=== PATIENT | female | born 1990 | race Caucasian/White ===

== ENCOUNTER 2025-03-14 17:14 | Outpatient (REF) | payer BC, SELFPAY | END 2025-03-14 17:15 | disposition home or self-care (01) | LOC: LBN 17:14 | PROVIDERS: Visit Provider Obstetrics & Gynecology | DX: D26.9 Other benign neoplasm of uterus, unspecified (principal) | CPT/HCPCS: 88305; 88361 ==

== ENCOUNTER 2025-04-09 15:17 | Outpatient (CLI) | payer BC, SELFPAY ==
[2025-04-09 14:37] LABS: HCT 41.1 % (36.0-46.0); HGB 14.1 g/dL (11.2-15.7); MCH 30.7 pg (27.0-33.0); MCHC 34.3 % (32.0-36.0); MCV 89 fL (80-95); MPV 9.7 fL (8.0-11.0); Platelet Count 253 10^3/uL (130-400); RBC 4.60 10^6/uL (3.93-5.22); RDW 12.6 % (11.7-14.6); RDW-SD 41.8 fL; WBC 7.84 10^3/uL (4.4-10.8)
== END 2025-04-09 15:18 | disposition home or self-care (01) ==
LOC: LBO 15:17
PROVIDERS: PCP Nurse Practitioner Family; Visit Provider Obstetrics & Gynecology
DX: Z01.818 Encounter for other preprocedural examination (principal)
CPT/HCPCS: 36415; 85027; 86850; 86900; 86901

== ENCOUNTER 2025-04-10 09:03 | Day surgery (SDC) | payer BC, SELFPAY ==
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
[2025-04-10 09:24] VITALS: BP 105/68; PULSE 66; RESP 16; TEMP 37; O2SAT 97
[2025-04-10] MEDS: Lactated Ringers 1,000 ML 150 ML IV (09:47)
[2025-04-10] MEDS: Acetaminophen 500 MG TAB 1000 MG PO (10:03)
--- NOTE | 2025-04-10 10:17 | W.ANESPRE ---
General Info Date of Service Date Performed: 04/10/25 Height: 5 ft 4 in Weight: 94.4 kg Body Mass Index (BMI): 35.7 Surgical Procedure: Operation Date: 04/10/25 10:40 Proposed Procedure Side Surgeon p Bethany Cone Biopsy, Melania Pineda DO Meds Allergies and Home Medications Allergies Allergy/AdvReac Type Severity Reaction Status Date / Time amoxicillin AdvReac Skin Rash Verified 04/10/25 09:23 Home Medication ?Medication ?Instructions ?Recorded cholecalciferol (vitamin D3) 25 75 mcg PO DAILY 03/13/25 mcg (1,000 unit) capsule mecobalamin (vitamin B12) 1,000 1,000 mcg PO DAILY 03/13/25 mcg chewable tablet omega-3 fatty acids 1,000 mg 1,000 mg PO DAILY 03/13/25 capsule lactobacillus combination no.4 3 3,000 mmu cells PO DAILY 04/09/25 billion cell capsule (Probiotic) Current Visit Medications: Current Medications Generic Name Dose Route Start Last Admin Trade Name Muna PRN Reason Stop Dose Admin Ringer's Solution 1,000 mls @ 150 mls/hr 04/10/25 06:00 04/10/25 09:47 IV 04/10/25 23:59 150 mls/hr INFUSION YANELI Administration IV Miscellaneous Supplies 1 each 04/10/25 06:00 Iv Access IV 04/10/25 23:59 DIRECTED YANELI Sodium Chloride 0 ml 04/10/25 06:00 Normal Saline Flush 10 Ml Syr IV 04/10/25 23:59 PRN PRN Sodium Chloride 0 ml 04/10/25 06:00 Normal Saline 10 Ml Vial IJ 04/10/25 23:59 DIRECTED PRN Sterile Water 0 ml 04/10/25 06:00 Water,Injection,Sterile 10 Ml Vial IJ 04/10/25 23:59 DIRECTED PRN PFSH Active Problems Active Problems: Problem Status Onset Code GUICHO II (cervical intraepithelial neoplasia II) Acute N87.1 Medical History Medical History LGSIL on Pap smear of cervix Obesity Psoriasis Vitamin D deficiency Pt. states this is incorrect Vitamin B 12 deficiency Pt. states this is incorrect Hypercholesteremia HPV (human papilloma virus) infection Surgical History Surgical History Hx of wisdom tooth extraction Tobacco Smoking/Tobacco Use Status: Former Tobacco Use Alcohol Alcohol Intake: former Substance Use Substance use: Occasionally Substance use type: marijuana Vital Signs and Lab Results Vital Signs Most Recent Vital Signs in EMR: Most Recent Vital Signs Temp Pulse Resp BP Pulse Ox 37.0 C 66 16 105/68 97 04/10/25 09:24 04/10/25 09:24 04/10/25 09:24 04/10/25 09:24 04/10/25 09:24 Point of Care Results Point of Care Results: POC- Test(urine) Negative 04/10/25 09:36 Lab Results Blood Type / Crossmatch: Antibody Screen NEGATIVE 04/09/25 Complete Blood Count: WBC, (4.4-10.8) 7.84 10^3/uL 04/09/25, 14:33 RBC, (3.93-5.22) 4.60 10^6/uL 04/09/25, 14:33 Hgb, (11.2-15.7) 14.1 g/dL 04/09/25, 14:33 Hct, (36.0-46.0) 41.1 % 04/09/25, 14:33 Plt Count, (130-400) 253 10^3/uL 04/09/25, 14:33 Anesthesia Assessment and Plan Anesthesia History Personal History: No History of Anesthesia Complications Family History: No Family History of Anesthesia Complications Exercise Tolerance Exercise Tolerance: Metabolic Equivalents>4 Cardiac & Pulmonary Exam Cardiac Exam: Normal S1/S2 Heart Sounds Pulmonary Exam: Clear Bilateral Breath Sounds Implantable Cardiac Device Does patient have a Pacemaker or an ICD?: No Airway Exam Known Difficult Airway: No Mallampati Class: 3 Mouth Opening: Narrow (< 3cm) Thyromental Distance: Greater than 3 cm Neck Range of Motion: Full ROM Neck Circumference: Normal Teeth Condition: Normal Dentition ASA Classification ASA Score: ASA 2 Emergency Case?: No NPO Status NPO Status: NPO Clears >2 hours, Solids >8 hours Status Status: Negative HCG Anesthesia Plan Resuscitation Status: Full Code Anesthesia Technique: General Anesthesia Airway Planned: Natural Airway Monitors Used: Standard Monitors Preoperative Comments:: 34 yo for LEEP cone bx. Sig PMHx: former smoker, occ cannabis. Denies GERD.
[2025-04-10 10:20] VITALS: BMI 35.7
--- NOTE | 2025-04-10 12:50 | W.PM.OP ---
Operative Note Operative Note PRE-OP DIAGNOSIS: GUICHO-2 POST-OP DIAGNOSIS: same PROCEDURE: Loop electrode excision procedure with endocervical curettage SURGEON: Melania Pineda Refer to Anesthesia Record ESTIMATED BLOOD LOSS: 5 PATHOLOGY: other (Left side transition zone, right side transition zone, and ECC) COMPLICATIONS: None Patient was transported to: PACU Patient's condition: stable Implants: None Indications: 34-year-old G0 with recent LSIL on Pap smear and subsequent GUICHO-2 on colposcopy; ECC benign Findings: Full transition zone appreciated with application of legal solution Procedure Description: Patient was taken to the OR with IV fluids running. Prophylactic antibiotics were not indicated. She urinated immediately prior to entering the OR. Anesthesia was established and found to be adequate. She was positioned into the modified dorsolithotomy position with her legs up in yellowfin stirrups. Pelvis was prepped with povidone solution, the patient was dressed with sterile dressings. A timeout was performed. A rubber coated exam was used to visualize the cervix. Lugol solution was applied to the cervix in order to appreciate the transition zone and any abnormal areas. Bovie was set to 60/60. A large loop electrode was chosen, and cut cautery was used to excise the transition zone in its entirety starting from the patient's left moving to the right. Of note, as I removed the loop electrode after the first pass, a portion of the right side of the transition zone remained; therefore, a second pass was made in a similar fashion to collect the right side of the patient's cervix. Once adequate samples were obtained, bleeding was addressed with ball cautery. Once adequate hemostasis was achieved, an ECC was collected using a Kevorkian curette. A few persistent areas of bleeding were addressed with additional ball cautery, and Monsel solution was applied to the entirety of the cervical bed. Good hemostasis was noted. All instruments were removed, and the patient was noted to have tolerated the procedure well. She was moved to PACU in good condition. Date of Procedure: 04/10/25
[2025-04-10 12:56] VITALS: BP 94/65; PULSE 68; RESP 14; TEMP 36.4; O2SAT 95
--- NOTE | 2025-04-10 13:02 | W.ANESPOSTOP ---
Postoperative Evaluation Date, Time and Location Date Performed: 04/10/25 Time Performed: 13:02 Patient Location: Day Surgery Unit Vital Signs Most Recent Imported Vital Signs: Most Recent Vital Signs Temp Pulse Resp BP Pulse Ox 36.4 C L 68 14 94/65 L 95 04/10/25 12:56 04/10/25 12:56 04/10/25 12:56 04/10/25 12:56 04/10/25 12:56 Pain Score Most Recent Pain Score: Most Recent Pain Score Pain Level 0 04/10/25 12:56 Assessment Mental Status: Awake (Alert & Oriented to Patient Baseline) Airway and Respiratory Function: Patent airway with normal (patient baseline) respiratory exam Cardiovascular Function: Hemodynamically Stable Hydration Status: Adequately Hydrated Nausea & Vomiting: No Nausea or Vomiting Pain: Pt. Denies Any Pain Peripheral Nerve Block: Patient did not receive a nerve block
[2025-04-10 13:24] VITALS: BP 106/77; PULSE 56; RESP 16; TEMP 36.1; O2SAT 100
== END 2025-04-10 13:58 | disposition home or self-care (01) ==
PROVIDERS: PCP Nurse Practitioner Family; Visit Provider Obstetrics & Gynecology
PROC: 0UBC7ZZ Excision of Cervix, Via Natural or Artificial Opening (ICD-10-PCS; CPT 57522; principal; 2025-04-10 10:30)
DX: D06.7 Carcinoma in situ of other parts of cervix (principal)
CPT/HCPCS: 57522; 88305; 88307; 88361; J1885; J2003; J2250; J2405; J2704; J3010